=== PATIENT | female | born 1990 | race Caucasian/White ===

== ENCOUNTER 2020-09-30 14:01 | Outpatient (REF) | payer BC, SELFPAY ==
[2020-10-01 08:22] LABS: BV Int Neg Control Negative (Negative); BV Int Pos Control Positive (Positive)
== END 2020-09-30 14:02 | disposition home or self-care (01) ==
LOC: HO.LAB 14:01
PROVIDERS: Visit Provider Advanced Practice Midwife
DX: Z01.419 Encounter for gynecological examination (general) (routine) without abnormal findings (principal); N89.8 Other specified noninflammatory disorders of vagina; Z97.5 Presence of (intrauterine) contraceptive device
CPT/HCPCS: 87480; 87510; 87660

== ENCOUNTER 2020-12-04 10:31 | Outpatient (REF) | payer BC, SELFPAY ==
[2020-12-05 09:10] LABS: BV Int Neg Control Negative (Negative); BV Int Pos Control Positive (Positive)
== END 2020-12-04 10:32 | disposition home or self-care (01) ==
LOC: HO.LAB 10:31
PROVIDERS: Visit Provider Advanced Practice Midwife
DX: N76.0 Acute vaginitis (principal); N93.0 Postcoital and contact bleeding; N92.1 Excessive and frequent menstruation with irregular cycle; Z97.5 Presence of (intrauterine) contraceptive device
CPT/HCPCS: 87480; 87510; 87660

== ENCOUNTER 2020-12-19 09:03 | Outpatient (REF) | payer BC, SELFPAY ==
[2020-12-20 12:01] LABS: BV Int Neg Control Negative (Negative); BV Int Pos Control Positive (Positive)
== END 2020-12-19 09:04 | disposition home or self-care (01) ==
LOC: HO.LAB 09:03
PROVIDERS: Visit Provider Advanced Practice Midwife
DX: N76.0 Acute vaginitis (principal); R10.2 Pelvic and perineal pain; N90.89 Other specified noninflammatory disorders of vulva and perineum; F17.290 Nicotine dependence, other tobacco product, uncomplicated; Z30.432 Encounter for removal of intrauterine contraceptive device
CPT/HCPCS: 58301; 87480; 87510; 87660

== ENCOUNTER 2020-12-25 14:53 | Outpatient (REF) | payer BC, SELFPAY ==
--- NOTE | ~2020-12-25 | US_ITS ---
EXAMINATION: US PELVIS, COMPLETE CLINICAL INFORMATION: Pelvic pain. COMPARISON: Ultrasound 08/08/2019 TECHNIQUE: Transabdominal and transvaginal imaging was performed. FINDINGS: LMP: 12/19/2020 Uterus is anteverted , measuring 7.2 x 3.1 x 5 cm. No focal uterine lesion. Endometrial thickness 0.2 cm. Right ovary measures 3.1 x 1.7 x 1.4 cm. Volume 3.9 mL. Left ovary measures 2.3 x 1.3 x 1.3 cm. Volume 2 mL. Bilateral ovaries appear unremarkable. No free fluid in the cul-de-sac. Bowel gas limiting evaluation. US/US pelvic and transvaginal IMPRESSION: Unremarkable sonographic appearance of the uterus and ovaries.
== END 2020-12-25 14:54 | disposition home or self-care (01) ==
LOC: HO.US 14:53
PROVIDERS: Visit Provider Advanced Practice Midwife
DX: R10.2 Pelvic and perineal pain (principal)
CPT/HCPCS: 76830; 76856

== ENCOUNTER → 2021-01-02 11:22 | Outpatient (BNVA) | payer BC, SELFPAY | PROVIDERS: Visit Provider Advanced Practice Midwife ==

== ENCOUNTER → 2021-04-24 15:24 | Outpatient (BNVA) | payer BC, SELFPAY | PROVIDERS: Visit Provider Advanced Practice Midwife ==

== ENCOUNTER → 2021-05-14 09:12 | Outpatient (BNVA) | payer BC, SELFPAY | PROVIDERS: Visit Provider Advanced Practice Midwife ==

== ENCOUNTER 2021-06-11 09:56 | Outpatient (REF) | payer BC, SELFPAY ==
[2021-06-12 13:49] LABS: CT PCR NOT DETECTED (Not Detect.); NG PCR NOT DETECTED (Not Detect.)
[2021-06-13 14:43] LABS: BV Int Neg Control Negative (Negative); BV Int Pos Control Positive (Positive)
== END 2021-06-11 09:57 | disposition home or self-care (01) ==
LOC: HO.LAB 09:56
PROVIDERS: Visit Provider Advanced Practice Midwife
DX: Z01.419 Encounter for gynecological examination (general) (routine) without abnormal findings (principal); Z11.3 Encounter for screening for infections with a predominantly sexual mode of transmission; B37.9 Candidiasis, unspecified; Z20.2 Contact with and (suspected) exposure to infections with a predominantly sexual mode of transmission
CPT/HCPCS: 87480; 87491; 87510; 87591; 87660